=== PATIENT | female | born 1995 | race Hispanic/Latino ===

== ENCOUNTER 2017-03-01 04:18 | Inpatient (IN) | payer MEDICAID ==
[2017-03-01] MEDS ORDERED: NARCAN 0.4 MG/1 ML IV PRN (06:37)
[2017-03-01] MEDS ORDERED: SUBLIMAZE IV PRN (06:37)
[2017-03-01] MEDS ORDERED: MINERAL OIL PO PRN (06:37)
[2017-03-01] MEDS ORDERED: ePHEDrine SULFATE IV PRN ×2 (06:37→09:07)
[2017-03-01] MEDS ORDERED: BRETHINE SUB-Q PRN (06:37)
[2017-03-01] MEDS ORDERED: ZOFRAN IV PRN ×2 (06:37→14:19)
[2017-03-01] MEDS ORDERED: BRETHINE IVP PRN (06:37)
[2017-03-01] MEDS ORDERED: XYLOCAINE 2% INFILTRATI ONE (06:37)
[2017-03-01] MEDS ORDERED: STADOL IV PRN (06:37)
[2017-03-01] MEDS ORDERED: PITOCin/NS 20 UNIT/1000ML DRIP 20 UNITS/1,000 ML BAG IV SCH (07:00)
[2017-03-01] MEDS: LACTATED RINGERS 1,000 ML IV SCH ×3 (07:13→11:20)
[2017-03-01 07:29] LABS: Hematocrit 31.9 % (30.3-42.9); Hemoglobin 10.2 gm/dl (10.1-14.3); Mean Corpuscular HGB Conc 32 % (30-34); Mean Corpuscular Volume 76 fl (79-97); Platelet Count 228 K/mm3 (140-440); Red Blood Count 4.19 M/mm3 (3.65-5.03); Red Cell Distribution Width 15.3 % (13.2-15.2); White Blood Count 12.2 K/mm3 (4.5-11.0)
[2017-03-01 07:46] LABS: Mean Corpuscular Hemoglobin 24 pg (28-32)
[2017-03-01] MEDS ORDERED: ePHEDrine SULFATE ONE (08:36)
--- NOTE | 2017-03-01 08:50 | History and Physical Report ---
History of Present Illness Date of examination: 03/01/17 Date of admission: 03/01/17 07:21 History of present illness: 22 yo LMP EDC 03/09/17 @ 38.6 weeks gestation presented in early am with cervical change from 4-5cm after ambulation. Second trimester entry into care at 18 weeks gestation, uncomplicated course. She is GBS negative. Past History Past Medical History: no pertinent history Past Surgical History: no surgical history Family/Genetic History: none Social history: no significant social history, - Obstetrical History Expected Date of Delivery: 03/09/17 Actual Gestation: 38 Week(s) 6 Day(s) : 2 Para: 1 Hx # Term Pregnancies: 1 Number of Living Children: 1 Medications and Allergies Allergies Allergy/AdvReac Type Severity Reaction Status Date / Time No Known Allergies Allergy Verified 03/01/17 06:40 Home Medications Medication Instructions Recorded Confirmed Last Taken Type Vit-Fe Fumar-FA [ 1 tab PO QDAY 03/01/17 03/01/17 02/28/17 History Vitamin] Active Meds: Active Medications Butorphanol Tartrate (Stadol) 2 mg IV Q2H PRN PRN Reason: Pain , Severe (7-10) Fentanyl (Sublimaze) 100 mcg IV Q2H PRN PRN Reason: Labor Pain Last Admin: 03/01/17 07:54 Dose: 100 mcg Lactated Ringer's (Lactated Ringers) 1,000 mls @ 125 mls/hr IV DIRECT JORGE ALBERTO Last Admin: 03/01/17 08:11 Dose: 999 mls/hr Oxytocin/Sodium Chloride (Pitocin/Ns 20 Unit/1000ml Drip) 20 units in 1,000 mls @ 125 mls/hr IV DIRECT JORGE ALBERTO Oxytocin/Sodium Chloride (Pitocin/Ns 30 Unit/500ml) 30 units in 500 mls @ 4 mls /hr IV TITR JORGE ALBERTO PRN Reason: Protocol Mineral Oil (Mineral Oil) 30 ml PO QHS PRN PRN Reason: Constipation Naloxone HCl (Narcan 0.4 Mg/1 Ml) 0.1 mg IV Q2MIN PRN PRN Reason: Res Rate </= 8 or 02 SAT < 92% Ondansetron HCl (Zofran) 4 mg IV Q8H PRN PRN Reason: Nausea And Vomiting Review of Systems All systems: negative Genitourinary: normal appearance, contractions, no vaginal bleeding, no vaginal discharge, no leakage of fluid - Vital Signs Vital signs: Vital Signs Pulse BP 96 H 131/81 03/01/17 04:32 03/01/17 04:32 Temp Pulse Resp BP Pulse Ox 98.3 F 112 H 18 162/80 100 03/01/17 07:28 03/01/17 08:42 03/01/17 07:54 03/01/17 08:42 03/01/17 08:42 - Physical Exam Breasts: Positive: deferred Lungs: Positive: Normal air movement Abdomen: Positive: normal appearance, soft. Negative: distention, tenderness Genitourinary (Female): Positive: normal external genitalia, normal perenium Vagina: Positive: normal moisture - Obstetrical FHR: category 1 Uterine Contraction Monitor Mode: External Cervical Dilatation: 5 Cervical Effacement Percentage: 90 station: -1 Uterine Contraction Frequency (min): 2 Uterine Contraction Duration: 70 Uterine Contraction Pattern: Regular Uterine Tone Measurement Phase: Resting Uterine Contraction Intensity: Moderate Results Result Diagrams: 03/01/17 07:00 Abnormal lab results 03/01/17 Range/Units 07:00 WBC 12.2 H (4.5-11.0) K/mm3 MCV 76 L (79-97) fl MCH 24 L (28-32) pg RDW 15.3 H (13.2-15.2) % All other labs normal. Assessment and Plan A IUP @ 38.6 weeks Active Labor P: Epidural AROM Pitocin augmentation
[2017-03-01] MEDS ORDERED: NARCAN 2 MG/2 ML IV PRN (09:07)
--- NOTE | 2017-03-01 09:07 | Anesthesia Consultation ---
Anesthesia Consult and Med Hx Date of service: 03/01/17 - Airway Anesthetic Teeth Evaluation: Good (braces) ROM Head & Neck: Adequate Mental/Hyoid Distance: Adequate Mallampati Class: Class II Intubation Access Assessment: Probably Good - Pre-Operative Health Status ASA Pre-Surgery Classification: ASA2 Proposed Anesthetic Plan: Epidural, Spinal - Pulmonary Hx Asthma: No COPD: No Hx Pneumonia: No - Cardiovascular System Hx Hypertension: No - Central Nervous System Hx Seizures: No Hx Psychiatric Problems: No - Endocrine Hx Renal Disease: No Hx End Stage Renal Disease: No Hx Hypothyroidism: No Hx Hyperthyroidism: No - Hematic Hx Anemia: No Hx Sickle Cell Disease: No - Other Systems Hx Alcohol Use: No
[2017-03-01] MEDS: PITOCin/NS 30 UNIT/500ML 30 UNITS/500 ML BAG IV SCH ×2 (09:33→09:56)
[2017-03-01] MEDS ORDERED: fentaNYL-BUPIV 2 MCG/ML-0.125% 200 MCG/100 ML BAG EPIDURAL SCH (10:00)
--- NOTE | 2017-03-01 13:30 | Procedure Note ---
OB Delivery Note - Delivery Date of Delivery: 03/01/17 (7-14oz female @ 1348) Surgeon: BRENDA ESPARZA Estimated blood loss: 200cc - Vaginal Delivery presentation: vertex Delivery position: OA Intrapartum events: none Delivery augmentation: rupture of membranes, pitocin Delivery monitor: external FHT, external uterine Route of delivery: Delivery placenta: spontaneous Delivery cord: 3 umbilical vessels Episiotomy: none Delivery laceration: other (vagina perineal skid sangeeta and bilateral labial, not bleeding not repaired) Anesthesia: epidural - Infant A at 1 minute: 8 at 5 minutes: 9 (Pushed for viable female in OA position over intact perineum. Bulb suctioned and placed skin to skin. Spont. placenta. Fundus messaged firm, bleeding scant. Pitocin infusing. Lacerations as noted. EBL 200cc. Mother and infant stable) Gender: Female
[2017-03-01] MEDS ORDERED: LANSINOH TP PRN (14:19)
[2017-03-01] MEDS ORDERED: PHENERGAN PO PRN (14:19)
[2017-03-01] MEDS ORDERED: TYLENOL PO PRN (14:19)
[2017-03-01] MEDS ORDERED: BENADRYL PO PRN (14:19)
[2017-03-01] MEDS ORDERED: MILK OF MAGNESIA PO PRN (14:19)
[2017-03-01] MEDS ORDERED: TUCKS PAD TP PRN (14:19)
[2017-03-01] MEDS ORDERED: NORCO 5/325 PO PRN (14:19)
[2017-03-01] MEDS ORDERED: DULCOLAX PR PRN (14:19)
[2017-03-01] MEDS ORDERED: PHENERGAN PR PRN (14:19)
[2017-03-01] MEDS ORDERED: SODIUM CHLORIDE FLUSH SYRINGE 10 ML IV NR (15:00)
[2017-03-01] MEDS: MOTRIN PO SCH ×2 (17:46→23:34)
[2017-03-02 01:49] LABS: Hematocrit 28.6 % (30.3-42.9); Hemoglobin 9.2 gm/dl (10.1-14.3)
[2017-03-02] MEDS: MOTRIN PO SCH ×2 (05:57→12:28)
[2017-03-02] MEDS ORDERED: PRENATAL VITAMIN PO SCH (10:00)
--- NOTE | 2017-03-02 10:32 | Progress Note ---
Assessment and Plan A: PPD#1 s/p at term; Asymptomatic anemia P: Routine care. Per pt request, discharge home today with in office follow up in 4 weeks. Subjective - Subjective Date of service: 03/02/17 Principal diagnosis: s/p at term Interval history: Pt doing well. She wants to go home today. Patient reports: appetite normal, voiding normally, pain well controlled, ambulating normally, no dizzy ambulation, no nauseated [place]: doing well Objective - Vital Signs Latest vital signs: Vital Signs Temp Pulse Resp BP Pulse Ox 03/02/17 08:05 98 F 101 H 18 114/70 03/02/17 00:00 98.2 F 82 18 110/65 03/01/17 20:25 98.2 F 78 18 128/68 03/01/17 16:10 98.8 F 84 18 119/66 03/01/17 15:24 96 H 18 129/61 03/01/17 15:12 96 H 129/61 03/01/17 14:59 94 H 18 117/67 03/01/17 14:57 94 H 117/67 03/01/17 14:43 91 H 18 122/68 03/01/17 14:42 91 H 122/68 03/01/17 14:26 101 H 123/71 03/01/17 14:15 98.1 F 109 H 18 118/63 03/01/17 14:12 109 H 118/63 03/01/17 14:10 116 H 127/65 03/01/17 14:06 109 H 145/66 03/01/17 14:00 133 H 119/76 03/01/17 13:55 121 H 121/75 03/01/17 13:50 190 H 112/52 03/01/17 13:45 137 H 134/78 03/01/17 13:40 127 H 127/95 03/01/17 13:37 117 H 125/81 100 03/01/17 13:32 101 H 100 03/01/17 13:30 148 H 119/76 03/01/17 13:25 130 H 122/69 03/01/17 13:22 117 H 100 03/01/17 13:21 131 H 118/66 03/01/17 13:17 107 H 100 03/01/17 13:16 127 H 123/72 03/01/17 13:12 124 H 100 03/01/17 13:11 113 H 129/70 03/01/17 13:07 112 H 100 03/01/17 13:05 112 H 121/72 03/01/17 13:02 123 H 100 03/01/17 13:01 115 H 119/74 03/01/17 12:57 95 H 100 03/01/17 12:56 116 H 115/62 03/01/17 12:52 107 H 110/70 99 03/01/17 12:47 111 H 99 03/01/17 12:46 113 H 111/71 03/01/17 12:42 117 H 98 03/01/17 12:41 109 H 113/71 03/01/17 12:37 113 H 99 03/01/17 12:35 114 H 123/62 03/01/17 12:32 102 H 99 03/01/17 12:30 118 H 115/68 03/01/17 12:27 111 H 115/74 99 03/01/17 12:22 120 H 99 03/01/17 12:20 127 H 101/59 03/01/17 12:17 106 H 100 03/01/17 12:16 123 H 115/73 03/01/17 12:12 106 H 99 03/01/17 12:11 109 H 108/70 03/01/17 12:07 117 H 100 03/01/17 12:06 120 H 115/69 03/01/17 12:02 104 H 100 03/01/17 12:01 126 H 113/69 03/01/17 11:57 121 H 100 03/01/17 11:56 112 H 107/56 03/01/17 11:52 123 H 99 03/01/17 11:50 126 H 110/61 03/01/17 11:47 116 H 99 03/01/17 11:46 122 H 127/59 03/01/17 11:42 124 H 100 03/01/17 11:40 111 H 117/62 03/01/17 11:37 101 H 100 03/01/17 11:36 117 H 116/59 03/01/17 11:33 109 H 116/68 03/01/17 11:32 92 H 99 03/01/17 11:27 96 H 100 03/01/17 11:22 117 H 99 03/01/17 11:20 109 H 107/55 03/01/17 11:17 109 H 90 03/01/17 11:12 88 100 03/01/17 11:10 116 H 110/69 03/01/17 11:07 128 H 100 03/01/17 11:05 122 H 116/73 03/01/17 11:02 120 H 100 03/01/17 11:00 122 H 110/72 03/01/17 10:57 117 H 100 03/01/17 10:55 114 H 110/71 03/01/17 10:52 117 H 100 03/01/17 10:50 133 H 114/67 03/01/17 10:47 136 H 100 03/01/17 10:45 111 H 108/68 03/01/17 10:42 92 H 99 03/01/17 10:41 109 H 112/68 03/01/17 10:37 92 H 108/71 100 03/01/17 10:32 105 H 100 Intake and Output 03/01/17 03/02/17 03/02/17 22:59 06:59 14:59 Intake Total 430 120 120 Output Total 1800 800 Balance -1370 120 -680 Intake: IV 310 PITOCin/NS 20 UNIT/1000ML 310 DRIP 20 units In 1,000 ml @ 125 mls/hr IV DIRECT JORGE ALBERTO Rx#:[id number] Oral 120 120 120 Output: Urine 1800 800 Indwelling Catheter 100 Void 1700 800 Other: Total, Intake Amount 120 120 120 Total, Output Amount 1100 800 # Voids Void 2 1 1 - Exam Breasts: Present: deferred Cardiovascular: Present: Regular rate Lungs: Present: Clear to auscultation Abdomen: Present: soft Uterus: Present: fundal height below umbilicus Extremities: Present: normal - Labs Labs: Abnormal lab results 03/02/17 Range/Units 01:06 Hgb 9.2 L (10.1-14.3) gm/dl Hct 28.6 L (30.3-42.9) %
--- NOTE | 2017-03-02 10:35 | Discharge Summary ---
Providers - Providers Date of Admission: 03/01/17 07:21 Date of discharge: 03/02/17 Attending physician: GRISELDA YOUNG Primary care physician: GRISELDA YOUNG Hospitalization Reason for admission: active labor Delivery: Procedure details: Please see delivery note. Episiotomy: none Laceration: none Other procedures: none complications: none Discharge diagnosis: IUP at term delivered [place] baby: female Hospital course: The patient was admitted in active labor went on to have a spontaneous vaginal delivery which she tolerated well. Her course uncomplicated [place] discharge criteria on day #1. She'll follow-up in the office in 4 weeks for a examination. Condition at discharge: Stable Disposition: DC- TO HOME OR SELFCARE - Discharge Diagnoses (1) Term of female Status: Acute (2) Anemia Status: Acute Qualifiers: Anemia type: A Iron deficiency anemia type: unspecified iron deficiency Vitamin B12 deficiency anemia type: V Folate deficiency anemia type: F Bone marrow failure anemia type: B Hemolytic anemia type: H Other causes of anemia: O Chronic kidney disease stage: C Qualified Code(s): D50.9 - Iron deficiency anemia, unspecified Plan - Discharge Medications Prescriptions: Ferrous Sulfate [Feosol 325 MG tab] 325 mg PO BID #60 tablet HYDROcodone/APAP 5-325 [Gilbert 5/325] 1 each PO Q6HR PRN #30 tablet PRN Reason: Pain Ibuprofen [Motrin 600 MG tab] 600 mg PO Q6H PRN #30 tablet PRN Reason: Pain - Provider Discharge Summary Activity: routine, no sex for 6 weeks, no heavy lifting 4 weeks, no strenuous exercise Diet: routine Instructions: routine Additional instructions: [] Smoking cessation referral if applicable(refer to patient education folder for contact #) [] Refer to [facility]'s [facility] Booklet Call your doctor immediately for: * Fever > 100.5 * Heavy vaginal bleeding ( >1 pad per hour) * Severe persistent headache * Shortness of breath * Reddened, hot, painful area to leg or breast * Drainage or odor from incision. * Keep incision clean and dry at all times and follow doctor's instructions regarding bathing/showering - Follow up plan Follow up: BRENDA ESPARZA CNM [Advanced Practice Nurse] - 03/29/17 ( exam )
--- NOTE | 2017-03-02 11:20 | Progress Note ---
Subjective Date of service: 03/01/17 Principal diagnosis: s/p at term Interval history: Patient states she has been ambulating well. No residual weakness. Denies back pain. No anesthesia complications. Epidural has been removed. Objective - Constitutional Vitals: Vital Signs - 12hr 03/02/17 03/02/17 00:00 08:05 Temperature 98.2 F 98 F Pulse Rate 82 101 H Respiratory 18 18 Rate Blood Pressure 110/65 114/70 - Labs CBC & Chem 7: 03/02/17 01:06 Labs: Abnormal lab results 03/02/17 Range/Units 01:06 Hgb 9.2 L (10.1-14.3) gm/dl Hct 28.6 L (30.3-42.9) %
[2017-03-02] MEDS ORDERED: M-M-R II VACCINE SUB-Q ONE (14:19)
[2017-03-02] MEDS ORDERED: BOOSTRIX IM ONE (14:19)
[2017-03-02 18:24] VITALS: BP 112/63
== END 2017-03-02 18:18 | disposition home or self-care (01) | DRG 775 ==
LOC: TRG 04:18 → LD 07:21 → OB 16:36
PROVIDERS: ADMIT Obstetrics & Gynecology; ATTEND Obstetrics & Gynecology
PROC: 10E0XZZ Delivery of Products of Conception, External Approach (ICD-10-PCS; principal; 2017-03-01)
PROC: 3E0S3CZ (ICD-10-PCS; 2017-03-01)
PROC: 00HU33Z Insertion of Infusion Device into Spinal Canal, Percutaneous Approach (ICD-10-PCS; 2017-03-01)
PROC: 3E0234Z Introduction of Serum, Toxoid and Vaccine into Muscle, Percutaneous Approach (ICD-10-PCS; 2017-03-01)
DX: O70.0 First degree perineal laceration during delivery (principal); Z3A.38 38 weeks gestation of pregnancy; Z37.0 Single live birth; Z23 Encounter for immunization
CPT/HCPCS: 36415; 85014; 85018; 85027; 86592; 86850; 86900; 86901; 99211; A6250; G0463; J2590; J3010; J7120